=== PATIENT | female | born 1970 | race African-American/Black ===

== ENCOUNTER 2023-04-03 16:10 | Emergency (ER) | payer BC ==
[2023-04-03 16:34] VITALS: BP 157/84; PULSE 93; RESP 18; TEMP 99.5; BMI 29.5
[2023-04-03] MEDS ORDERED: ACETAMINOPHEN 1000 MG/100 ML BAG IVPB ONE (16:47)
[2023-04-03] MEDS ORDERED: ACETAMINOPHEN INJECTION 100 ML IVPB ONE (17:29)
[2023-04-03 17:34] LABS: INR 1.03 (0.83-1.09); PROTHROMBIN TIME (PATIENT) 11.9 SEC (9.7-13.0)
[2023-04-03 17:35] LABS: HEMATOCRIT 41.2 % (32.4-45.2); HEMOGLOBIN 13.9 G/dL (10.7-15.3); MCH 31.5 pg (25.7-33.7); MCHC 33.7 g/dl (32.0-36.0); MEAN CELL VOLUME 93.6 fl (80-96); MEAN PLT VOLUME 8.8 fl (7.5-11.1); PLATELET COUNT 224.5 10^3/uL (134-434); RDW 13.2 % (11.6-15.6); WHITE BLOOD COUNT 8.4 10^3/uL (4.0-10.8)
[2023-04-03 17:37] LABS: ACTIVATED PTT 28.6 SECONDS (25.2-36.5); PLATELET ESTIMATE ADEQUATE
[2023-04-03 17:59] LABS: ALBUMIN 4.5 g/dl (3.4-5.0); ALK PHOS 63 U/L (45-117); ANION GAP 10 MMOL/L (8-16); BLOOD UREA NITROGEN 13.2 mg/dl (7-18); CALCIUM 9.5 mg/dl (8.5-10.1); CHLORIDE 99 mmol/L (98-107); CO2 31 mmol/L (21-32); CREATININE 0.9 mg/dl (0.6-1.3); GLUCOSE,RANDOM 84 mg/dl (74-106); POTASSIUM 4.3 mmol/L (3.5-5.1); SGOT/AST 52.9 U/L (15-37); SGPT/ALT 52.6 U/L (7-52); SODIUM 140 mmol/L (136-145); TOT PROT 7.4 g/dl (6.4-8.2)
[2023-04-03 19:30] LABS: LIPASE 139 U/L (73-393)
[2023-04-03 19:34] LABS: BILIRUBIN,TOTAL 1.6 mg/dL (0.2-1)
== END 2023-04-03 20:35 | disposition home or self-care (01) ==
LOC: FER 16:10
PROC: 3E033NZ Introduction of Analgesics, Hypnotics, Sedatives into Peripheral Vein, Percutaneous Approach (ICD-10-PCS; principal; 2023-04-03)
DX: R10.31 Right lower quadrant pain (principal); K59.00 Constipation, unspecified
CPT/HCPCS: 36415; 74177-TC; 76830-TC; 80053; 81003; 83690; 84703; 85027; 85610; 85730; 86140; 86850; 86900; 86901; 87086; 99285-25; Q9967